=== PATIENT | female | born 1995 | race Caucasian/White ===

== ENCOUNTER 2022-02-27 16:58 | Inpatient (IN) | payer BC ==
[~2022-02-27] VITALS: Ht 162.6 cm; Wt 97.1 kg
[2022-02-27 18:35] LABS: RED BLOOD COUNT 3.64 M/UL (4.00-5.10); WHITE BLOOD COUNT 12.3 K/UL (4.5-11.0)
[2022-02-27] MEDS ORDERED: LEXAPRO20 MG PO (18:43)
[2022-02-28] MEDS ORDERED: HYDROCODON-ACE1 EAC4 PO (16:26)
[2022-02-28] MEDS ORDERED: IBUPROFEN800 MG PO (16:26)
[2022-02-28] MEDS ORDERED: COLACE 100MG C100 MG PO (16:26)
[2022-03-01 06:01] LABS: HEMOGLOBIN 9.3 gm/dl (12.3-15.3)
[2022-03-01] MEDS ORDERED: FERROUS SULFAT325 MG PO (11:25)
== END 2022-03-02 12:03 | disposition home or self-care (01) | DRG 806 ==
LOC: GENOP 16:58 → OB 17:46
PROVIDERS: Obstetrics & Gynecology; ADMIT Obstetrics & Gynecology
PROC: 10E0XZZ Delivery of Products of Conception, External Approach (ICD-10-PCS; principal; 2022-02-28)
PROC: 0KQM0ZZ Repair Perineum Muscle, Open Approach (ICD-10-PCS; 2022-02-28)
PROC: 4A1HXCZ Monitoring of Products of Conception, Cardiac Rate, External Approach (ICD-10-PCS; 2022-02-28)
PROC: 0U7C7ZZ Dilation of Cervix, Via Natural or Artificial Opening (ICD-10-PCS; 2022-02-28)
PROC: 3E033VJ Introduction of Other Hormone into Peripheral Vein, Percutaneous Approach (ICD-10-PCS; 2022-02-28)
DX: O36.5930 Maternal care for other known or suspected poor fetal growth, third trimester, not applicable or unspecified (principal); D62 Acute posthemorrhagic anemia; Z37.0 Single live birth; Z3A.37 37 weeks gestation of pregnancy; Z20.822 Contact with and (suspected) exposure to COVID-19; O70.1 Second degree perineal laceration during delivery; Z90.49 Acquired absence of other specified parts of digestive tract; Z87.442 Personal history of urinary calculi; Z98.84 Bariatric surgery status; Z82.49 Family history of ischemic heart disease and other diseases of the circulatory system; Z84.89 Family history of other specified conditions; O90.81 Anemia of the puerperium
CPT/HCPCS: 36415; 81001; 82800; 85014; 85018; 85025; 90715; J2590; J7120